=== PATIENT | female | born 1980 | race Caucasian/White ===

== ENCOUNTER 2018-09-12 12:27 | Outpatient (CLI) | payer BC, OTHER ==
[~2018-09-12] VITALS: Ht 170.2 cm; Wt 103.2 kg
[~2018-09-12 12:27] MED LIST: IBUP-727
[2018-09-12] MEDS ORDERED: PREN-93 PO (13:01)
[2018-09-12 13:07] VITALS: BP 128/79; PULSE 85; RESP 18; Ht 170.2 cm; Wt 103.2 kg
--- NOTE | 2018-09-12 14:55 | PN ---
Triage Information Date/Time Reason for visit: Evaluation for preeclampsia Weeks of Gestation Patient is a 37-year-old 5 para 3 at 32 weeks and 1 day of gestation with estimated date of delivery October 11, 2018 Patient with chronic hypertension, suspected for superimposed preeclampsia here for further evaluation She was on labetalol 100 mg p.o. twice daily although patient has been non- compliant with taking her medication She reports a 24-hour urine protein collection which was done in the clinic and the results were abnormal She reports positive movement, denies uterine contractions, denies vaginal bleeding or leaking fluid Obstetrical history significant for previous and she will be scheduled for repeat and BTL by her PHYSICIAN /Para 5 para 3 Diabetes: none Hypertention: essential, induced Objective Vital Signs Date Temp Pulse Resp B/P (MAP) Pulse Ox O2 O2 Flow FiO2 Time Delivery Rate 09/12/18 98.3 85 18 128/79 Room Air 13:07 (95) Heart Rate: 140's Heart Rate Comments heart rate tracing category 1 Contractions: None Results/Medications Result Diagram: 09/12/18 1338 09/12/18 1338 Results 24 hrs Laboratory Tests Test 09/12/18 13:00 09/12/18 13:38 Urine Color YELLOW Urine Clarity CLOUDY A Urine pH 6.0 Urine Specific [place] 1.024 Urine Ketones 2+ H Urine Nitrite NEGATIVE Urine Bilirubin NEGATIVE Urine Urobilinogen NEGATIVE Urine Leukocyte Esterase 3+ H Urine Microscopic RBC 2 Urine Microscopic WBC 6 H Urine Squamous Epithelial Cells MANY A Urine Mucus MODERATE Urine Hemoglobin 1+ H Urine Glucose NEGATIVE Urine Total Protein 2+ H White Blood Count 9.9 Red Blood Count 4.14 L Hemoglobin 11.9 L Hematocrit 36.1 L Mean Corpuscular Volume 87.2 Mean Corpuscular Hemoglobin 28.7 L Mean Corpuscular Hemoglobin Concent 33.0 Red Cell Distribution Width 12.1 Platelet Count 363 Mean Platelet Volume 9.7 Immature Granulocytes % 0.500 H Neutrophils % 70.2 Lymphocytes % 20.8 Monocytes % 7.7 Eosinophils % 0.4 Basophils % 0.4 Nucleated Red Blood Cells % 0.0 Immature Granulocytes # 0.050 H Neutrophils # 7.0 Lymphocytes # 2.1 Monocytes # 0.8 Eosinophils # 0.0 Basophils # 0.0 Nucleated Red Blood Cells # 0.0 Prothrombin Time 12.5 Prothrombin Time Ratio 1.0 INR International Normalized Ratio 0.92 Activated Partial Thromboplast Time 27.9 Fibrinogen 550.0 H Sodium Level 138 Potassium Level 3.6 Chloride Level 108 Carbon Dioxide Level 20 L Anion Gap 10 Blood Urea Nitrogen 6 L Creatinine 0.39 L Est Glomerular Filtrat Rate mL/min > 60 Glucose Level 95 Calcium Level 9.1 Total Bilirubin 0.4 Direct Bilirubin 0.00 Indirect Bilirubin 0.4 Aspartate Amino Transf (AST/SGOT) 16 Alanine Aminotransferase (ALT/SGPT) 11 L Alkaline Phosphatase 128 H Total Protein 7.0 Albumin 3.5 Globulin 3.50 H Albumin/Globulin Ratio 1.00 Imaging Results PROCEDURE: US OB. CLINICAL INDICATION: Size and dates , hypertension TECHNIQUE: Multiple sonographic images of the pelvis and gravid uterus were obtained. The images were reviewed on a PACS workstation. COMPARISON: No prior studies are available for comparison. FINDINGS: Gestation: Single live intrauterine gestation. Cardiac activity: 146 beats per minute. Presentation: Vertex. Placenta: Location: Anterior. Appearance: No previa or abruption. Measurements: BPD = 8.8 cm, 35 weeks and 4 days HC = 31 cm, 34 weeks and 5 days AC = 30.2 cm, 34 weeks and 1 day FL = 5.7 cm, 29 weeks and 5 days Gestational Age: AUA estimated gestational age: 33 weeks 4 days LMP estimated gestational age: 32 weeks 1 day AUA estimated date of delivery: 10/27/18 The EFW = 2114 g, 69.9%ile based on LMP age. RPTAT: AA IMPRESSION: Single live intrauterine gestation of 33 weeks 4 days by ultrasound criteria. Femoral length is significantly decreased compared to other measurements. .Lucien Matute MD, Date Time Electronically viewed and signed by .Lucien Matute MD, on 09/12/2018 13:34 .S/ CC: OLGA LIDIA MUNGUIA MD [id number] AMENDMENT: 09/12/2018 10:57:51 AM Waqar Buckley M.d Comparison: 07/06/2018 PROCEDURE: US OB biophysical profile CLINICAL INDICATION: Hypertension TECHNIQUE: Multiple sonographic images of the pelvis were obtained. The images were reviewed on a PACS workstation. COMPARISON: None FINDINGS: There is a single viable intrauterine gestation. The placenta is anterior. There is no evidence for an abruption or placenta previa. There is a vertex presentation. Biophysical profile: Body movement: 2/2 tone: 2/2 Breathin/2 ELIA: 2/2 Total: 88 There is a normal amount of amniotic fluid with an ELIA = 16.2 cm. heart activity with 128 bpm There are no adnexal masses. IMPRESSION: Normal biophysical profile. RPTAT: [facility] Physician Hamzah Date Time Electronically viewed and signed by Physician Hamzah on 09/12/2018 10:57 ME/ CC: OLGA LIDIA MUNGUIA MD [phone] Disposition: Discharge Assessment/Plan Prescription for labetalol 100 mg p.o. twice daily was given Patient instructed to continue with taking baby aspirin daily kick count instructions were given Labor precautions were given Patient instructed to return in 48 hours for repeat NST and BPP Patient instructed to follow-up with her own PHYSICIAN in 1 to 2 days DEMETRIUS TAPIA MD Sep 12, 2018 14:55
--- NOTE | 2018-09-12 15:02 | TRIAGE ---
OB Triage Datetime Report Generated by CPN: 09/12/2018 15:02 Datetime: 09/12/2018 13:21 Labor Evaluation Frequency: 0 Monitor Mode: External Pattern: Normal: <= 5 Contractions in 10 Minutes Resting Tone [place]: Relaxed Contraction Comments: none noted Heart Rate FHR Baseline Rate: 140 Monitor Mode: External US Variability: Moderate 6-25 bpm Accelerations: 15X15 Decelerations: None Category: Category I Datetime: 09/12/2018 12:59 Assessment Type: Triage Maternal Assessment Level of Consciousness: Fully Conscious DTR's/Clonus: DTRs 2+; No Clonus Headache: Denies Blurred Vision: No Respiratory Effort: Unlabored; Regular Rhythm; Equal Expansion Breath Sounds, Left: Clear and Equal Breath Sounds, Right: Clear and Equal Nausea/Vomiting: Denies RUQ Epigastric Pain: Denies Lower Extremities Edema: None Degree: None Upper Extremities Edema: None Degree: None Facial Edema: None Fall Risk Assessment History of Falling: (0) No Secondary Diagnosis: (0) No Ambulatory Aid: (0) Bedrest/Nurse Assist IV Therapy: (0) No Gait: (0) Normal/Bedrest/Immobile Mental Status: (0) Oriented to Own Ability Fall Score: 0 Fall Risk Score Definition: No Risk: No action required Datetime: 09/12/2018 12:57 Time of Arrival: 09/12/2018 12:20 EGA: 32.1 Arrived By: Ambulatory Arrived From: Dr. Salazar Chief Complaint: PT. SENT FROM CLINIC FOR EVAL. OF HBP Movement: Present Contractions: Denies/Absent Rupture of Membranes: Denies Vaginal Bleeding: None Vaginal Discharge: Denies Recent Sexual Intercouse: Denies Abdominal Trauma: Not Applicable Patient Complaints: None Time Provider Notified: 09/12/2018 13:12 Provider Notified: ESHAGHIAN Initial Plan: BPP/EFW/PIH PANEL Datetime: 09/12/2018 12:55 Monitor Mode: External Monitor Mode: External US
== END 2018-09-12 14:50 | disposition home or self-care (01) ==
LOC: OBT 12:27 → L-D 12:27 → OBT 14:50
PROVIDERS: ATTEND Obstetrics & Gynecology
DX: O13.3 Gestational [pregnancy-induced] hypertension without significant proteinuria, third trimester (principal); O09.523 Supervision of elderly multigravida, third trimester; Z3A.32 32 weeks gestation of pregnancy
CPT/HCPCS: 76815; 76818; 80053; 81001; 85025; 85384; 85610; 85730; G0463

== ENCOUNTER 2018-09-15 07:58 | Outpatient (CLI) | payer BC ==
[~2018-09-15] VITALS: Ht 170.2 cm; Wt 105.0 kg
[~2018-09-15 07:58] MED LIST changes: +PREN-93 PO
[2018-09-15 08:18] VITALS: BP 139/94; Ht 170.2 cm; Wt 105.0 kg
[2018-09-15] MEDS ORDERED: LABE200T25 PO (08:22)
--- NOTE | 2018-09-15 10:09 | TRIAGE ---
OB Triage Datetime Report Generated by CPN: 09/15/2018 10:09 Datetime: 09/15/2018 10:02 Stage of : OB Triage Comments: DR. ARDALAN AT BEDSIDE POC DISCUSSED ORDERS TO ADMIT TO ANIT Datetime: 09/15/2018 09:23 Heart Rate FHR Baseline Rate: 145 Monitor Mode: External US Variability: Moderate 6-25 bpm Accelerations: 15X15 Decelerations: None Category: Category I Datetime: 09/15/2018 09:11 EGA: 32.4 Datetime: 09/15/2018 08:27 Comments: US AT BEDSIDE Datetime: 09/15/2018 08:09 Stage of : OB Triage Assessment Type: Triage Maternal Assessment Level of Consciousness: Fully Conscious DTR's/Clonus: DTRs 2+; No Clonus Headache: Denies Blurred Vision: No Respiratory Effort: Unlabored; Regular Rhythm; Equal Expansion Breath Sounds, Left: Clear and Equal Breath Sounds, Right: Clear and Equal Nausea/Vomiting: Denies RUQ Epigastric Pain: Denies Lower Extremities Edema: None Degree: None Upper Extremities Edema: None Degree: None Facial Edema: None Temperature Route: Oral Fall Risk Assessment History of Falling: (0) No Secondary Diagnosis: (0) No Ambulatory Aid: (0) Bedrest/Nurse Assist IV Therapy: (0) No Gait: (0) Normal/Bedrest/Immobile Mental Status: (0) Oriented to Own Ability Fall Score: 0 Fall Risk Score Definition: No Risk: No action required Labor Evaluation Monitor Mode: External (Annotations: INITIAL PLACEMENT ) Monitor Mode: External US Pain Assessment Pain Scale: 0 Pain Presence: None/Denies Pain Type: N/A Datetime: 09/15/2018 08:08 Time of Arrival: 09/15/2018 07:52 EGA: 32.4 Arrived By: Ambulatory Arrived From: Home Chief Complaint: F/UP NST BPP Movement: Present Contractions: Denies/Absent Rupture of Membranes: Denies Vaginal Bleeding: None Vaginal Discharge: Denies Recent Sexual Intercouse: Denies Abdominal Trauma: Not Applicable Patient Complaints: Other Time Provider Notified: 09/15/2018 10:00 Provider Notified: DR. OSMAN Initial Plan: NST BPP Datetime: 09/12/2018 12:59 Fall Score: 0 Fall Risk Score Definition: No Risk: No action required Datetime: 09/12/2018 12:57 EGA: 32.1
[2018-09-15] MEDS ORDERED: LACTATED RINGER'S 1,000 ML IV SCH (10:10)
[2018-09-15] MEDS ORDERED: BETAMET NA PHOS/AC(6 MG/ML) 2 ML INJ SYG IM SCH (10:30)
[2018-09-15] MEDS ORDERED: GLUCOSE GEL 15 GRAM TUBE BUCCAL PRN (10:30)
[2018-09-15] MEDS ORDERED: DEXTROSE 50% 50 ML SYRINGE IV PRN ×2 (10:30)
[2018-09-15] MEDS ORDERED: GLUCOSE GEL 15 GRAM TUBE PO PRN ×2 (10:30)
[2018-09-15] MEDS ORDERED: GLUCAGON 1 MG INJ IM PRN (10:30)
[2018-09-15] MEDS ORDERED: ACCU-CHEK XX SCH (13:30)
--- NOTE | 2018-09-15 16:14 | HP ---
Date/Time of Note Date/Time of Note DATE: 09/15/18 TIME: 16:09 OB - History Hx of Present Free Text/Dictation September 15, 2018 : 5 Para: 3 Other Concerns: 37-year-old G5, P3 with IUP at 32 weeks and 4 days was sent to the hospital for rule out PIH due to elevated blood pressure and during the office visit. Patient denies any headache, blurred vision, epigastric pain or right upper quadrant pain. Records from clinic is available. Reviewed. Patient was noted to have elevated blood pressure in the range of 130s to 140s over 80s. She had an episode of blood pressure up to 170s over 100. She was asymptomatic. She was noted to have abnormal 1 hour PG. 1 hour PG was above 200 consistent with likely pre-gestational diabetes. Patient has not been managing diabetes or has not been checking her blood sugar nor is aware of her diabetes cystitis. She denies any leaking of fluid, vaginal bleeding or decreased movement. Past Family/Social History * Past Medical, Surgical, Family and Obstetric Histories reviewed from chart. Blood Type: O+ Rubella: immune RPR/VDRL: Negative GBS Status: Unknown HBsAG: Negative OB Admission Exam Vital Signs Vital Signs Vital Signs Date Temp Pulse Resp B/P (MAP) Pulse Ox O2 O2 Flow FiO2 Time Delivery Rate 09/15/18 98.0 139/94 08:18 (109) Physical Exam HEENT: WNL Lungs: Clear Abdomen: WNL Extremities: Normal Membranes: Intact Amniotic Fluid: Clear Heart Rate: 130's Accelerations: Accelerations Present Decelerations: No Decelerations Varibility: Moderate Contractions on Admission: None Last 72 hours Lab Results CBC & BMP 09/15/18 08:37 Liver Function Test 09/15/18 08:37 Alanine Aminotransferase (ALT/SGPT) 12 L Albumin 3.4 Alkaline Phosphatase 125 H Aspartate Amino Transf (AST/SGOT) 15 Direct Bilirubin 0.00 Total Protein 6.6 PROCEDURE: US OB biophysical profile. CLINICAL INDICATION: decreased movements, hypertension TECHNIQUE: Multiple sonographic images of the pelvis were obtained. The images were reviewed on a PACS workstation. COMPARISON: US PELVIS 09/12/2018 FINDINGS: There is a single live intrauterine gestation. Cardiac activity is present with 139 beats per minute. There is a vertex presentation. The placenta is anterior. There is no evidence of placental abruption. ELIA = 15.1 cm. Biophysical profile: movement 2/2 tone 2/2. breathing 2/2 ELIA 2/2 Total 11/17 RPTAT: AA . IMPRESSION: Normal biophysical profile. . OB Assessment/Plan Other Assessment: IUP at 32 weeks and 4 days PIH, One episode of elevated blood pressure in the range of 170s over 100 noted. It resolved after repeat blood pressure monitoring to 150s over 80s. PIH labs are negative testing reassuring. Patient is currently asymptomatic. Recommended the patient to be admitted for close monitoring observation of blood pressure and serial monitoring as well as 24-hour urine protein collection. GDM, patient was unaware of her diabetes status and has not been checking her blood sugar. Discussed with the patient regarding risk of on controlled diabetes during and consequences including macrosomia, section, intrauterine distress and IUFD Also risk of uncontrolled hypertension urine discussed with the cesar abdi. Patient declined to be admitted and desires to leave AMA. Extensive counseling and presents of RN Martha bee. Explained to the patient importance of significance of uncontrolled hypertension during including but not limited to risk of stroke, intracerebral hemorrhage, eclampsia and seizure and poor and maternal morbidity and mortality in detail. Patient verbalized understanding however desires to leave AMA. She states that she had parked her car outside and does not want to get a ticket but she will return after she move her car to the hospital. Patient verbalized understanding all above discussion and agreed to return back to the hospital. She understands importance of follow-up of management of hypertension diabetes and as extensive discussion was done. BLAKE MAGUIRE MD Sep 15, 2018 16:14
[2018-09-15] MEDS ORDERED: LABETALOL 200 MG TAB PO SCH (21:00)
[2018-09-16] MEDS ORDERED: FERROUS SULFATE (EC) 325 MG TAB PO SCH (09:00)
== END 2018-09-15 11:22 | disposition home or self-care (01) ==
LOC: OBT 07:58 → L-D 07:58 → UNDOADMIN 10:05 → L-D 10:05 → OBT 10:05 → L-D 10:10
PROVIDERS: ATTEND Obstetrics & Gynecology
DX: O13.3 Gestational [pregnancy-induced] hypertension without significant proteinuria, third trimester (principal); O09.523 Supervision of elderly multigravida, third trimester; Z3A.32 32 weeks gestation of pregnancy
CPT/HCPCS: 36415; 76818; 80053; 81001; 84560; 85025; J0702; J7120; Z7500; G0463